=== PATIENT | male | born 1955 | race Caucasian/White ===

== ENCOUNTER → 2021-07-07 | Outpatient (CLI) | payer OTHER ==
[~2021-07-07] MED LIST: ASPIRIN EC81 MG PO; HYDRALAZINE HCL25 MG PO; LISINOPRIL10 MG PO; LOPRESSOR 25 MG25 MG PO; LOPRESSOR 50 MG50 MG PO; NITROSTAT0.4 MG SL; NORVASC10 MG PO; OMEPRAZOLE20 M1 PO; PRAVACHOL40 MG PO; PRINIVIL20 MG PO
== END ==
LOC: KOH-I 12:27
DX: R07.81 Pleurodynia (principal)
CPT/HCPCS: 71100

== ENCOUNTER → 2022-03-24 | Outpatient (CLI) | payer OTHER | LOC: HEART 5 03-09 08:45 | DX: R07.9 Chest pain, unspecified (principal) | CPT/HCPCS: 78452; A9502; J2785 ==